=== PATIENT | female | born 1990 | race Caucasian/White ===

== ENCOUNTER → 2024-02-23 | Outpatient (CLI) | payer MEDICAID ==
[~2024-02-23] MED LIST: BUPR100T5 PO; CETI-90 PO; GABA-530 PO; LORA10TA65 PO; METF500T PO; MONT-47 PO; PANT-47 PO; SPIR25TA5 PO
== END | disposition home or self-care (01) ==
LOC: RAD 08:14
PROVIDERS: ATTEND Physician Assistant
DX: R31.9 Hematuria, unspecified (principal); R10.9 Unspecified abdominal pain
CPT/HCPCS: 76770